=== PATIENT | female | born 1985 | race Caucasian/White ===

== ENCOUNTER 2020-10-24 00:31 | Emergency (ER) | payer OTHER ==
[~2020-10-24] VITALS: Ht 172.7 cm; Wt 83.9 kg
[2020-10-24] MEDS ORDERED: ZOFRAN4 MG PO (03:23)
[2020-10-24] MEDS ORDERED: HYDROCODON-ACE1 EA10 PO (03:23)
== END 2020-10-24 03:40 | disposition home or self-care (01) ==
LOC: ED 00:31
DX: N13.2 Hydronephrosis with renal and ureteral calculous obstruction (principal)
CPT/HCPCS: 74176; 80053; 81001; 83690; 84703; 85025; 96374; 96375; 96376; 99284-25; J1170; J1885; J2405